=== PATIENT | female | born 1980 | race Caucasian/White ===

== ENCOUNTER 2017-08-24 14:39 | Emergency (ER) | payer MEDICAID ==
[~2017-08-24] VITALS: Ht 154.9 cm; Wt 71.7 kg
[2017-08-24 14:53] VITALS: BP 100/65
--- NOTE | 2017-08-24 15:31 | Emergency Room Report ---
History of Present Illness General Chief Complaint: Skin Rash/Abscess Source: Patient Present Illness HPI 37-year-old female presents to the emergency department complaining of erythema , 5/10 in severity tenderness, itching of the left forearm and an area of the left shoulder x2 days. Patient reports she had small insect bites initially however on the left forearm moderate swelling has progressed in addition to increased temperature palpation, erythema and tenderness.Denies lesions/rashes elsewhere on the body. Denies new medications or body washes or creams. Denies swelling of the lips, tongue , throat or airway. Denies wheezing, or shortness of breath. Denies recent travel, recent illness or ill contacts. denies blisters, oral lesions, or sloughing of the skin. Denies CP, Palpitations, LOC , AMS, dizziness, Changes in Vision, Sensation, paresthesias, or a sudden severe headache. Allergies: Coded Allergies: PENICILLINS (Verified Allergy, Unknown, 08/24/17) Patient History Past Medical History: see triage record Past Surgical History: none Pertinent Family History: none Last Menstrual Period: 08/22/17 Now: No Immunizations: UTD Reviewed Nursing Documentation: PMH: Agreed, PSxH: Agreed Nursing Documentation-PMH Past Medical History: No Stated History Review of Systems All Other Systems: negative except mentioned in HPI Physical Exam Vital Signs Date Time Temp Pulse Resp B/P (MAP) Pulse Ox O2 Delivery O2 Flow Rate FiO2 08/24/17 14:45 98.2 89 14 100/65 96 Room Air Sp02 EP Interpretation: reviewed, normal General Appearance: no apparent distress, alert, GCS 15, non-toxic Head: normocephalic, atraumatic Eyes: bilateral eye normal inspection, bilateral eye PERRL ENT: hearing grossly normal, normal pharynx, no angioedema, normal voice, other - no swelling of the lips or tongue, no oral lesions Neck: full range of motion Respiratory: chest non-tender, lungs clear, normal breath sounds, no wheezing, speaking full sentences Cardiovascular #1: regular rate, rhythm, normal capillary refill Cardiovascular #2: 2+ radial (R), 2+ radial (L) Rectal: deferred Musculoskeletal: back normal, gait/station normal, normal range of motion, non- tender Neurologic: alert, oriented x3, responsive, motor strength/tone normal, sensory intact, speech normal Psychiatric: judgement/insight normal, memory normal, mood/affect normal Skin: normal color, warm/dry, well hydrated, rash - swelling erythema, increased temperature to palpation to the left fore arm approximately 5 inches in diameter, there is mild swelling induration and blanching erythema to a discrete lesion on the left shoulder as well. Medical Decision Making PA Attestation Dr. Rosenberg is my supervising Physician whom patient management has been discussed with. Diagnostic Impression: Primary Impression: Insect bite Qualified Codes: W57.XXXA - Bitten or stung by nonvenomous insect and other nonvenomous arthropods, initial encounter Additional Impression: Cellulitis Qualified Codes: L03.114 - Cellulitis of left upper limb ER Course 37-year-old female presents to the emergency department complaining of erythema , 5/10 in severity tenderness, itching of the left forearm and an area of the left shoulder x2 days. Patient reports she had small insect bites initially however on the left forearm moderate swelling has progressed in addition to increased temperature palpation, erythema and tenderness.Denies lesions/rashes elsewhere on the body. Denies new medications or body washes or creams. Denies swelling of the lips, tongue , throat or airway. Denies wheezing, or shortness of breath. Denies recent travel, recent illness or ill contacts. denies blisters, oral lesions, or sloughing of the skin. Denies CP, Palpitations, LOC , AMS, dizziness, Changes in Vision, Sensation, paresthesias, or a sudden severe headache. Ddx considered but are not limited to cellulitis, scabies, shingles, varicella, dermatitis, urticaria, eczema, tinea, viral exanthem, SJS Vital signs: are WNL, pt. is afebrile H&PE are most consistent with Insect bites with secondary cellulitis ORDERS: none required at this time, the diagnosis is clinical ED INTERVENTIONS: -Ice Pack -Tylenol -Benadryl DISCHARGE: At this time pt. is stable for d/c to home. Will provide printed patient care instructions, and any necessary prescriptions. Care plan and follow up instructions have been discussed with the patient prior to discharge. Last Vital Signs Date Time Temp Pulse Resp B/P (MAP) Pulse Ox O2 Delivery O2 Flow Rate FiO2 08/24/17 14:53 14 100/65 96 Room Air 08/24/17 14:45 98.2 89 Disposition: HOME, SELF-CARE Condition: Stable Patient Instructions: Cellulitis, [id number], Insect Bite, Xrmd-[id number] Additional Instructions: Take medications as directed. Follow up with a Primary Care Provider in 3-5 days, even if your symptoms have resolved. --Please review list of primary care clinics, if you do not already have a primary care provider Return sooner to ED if new symptoms occur, or current symptoms become worse. - Please note that this Emergency Department Report was dictated using [employer] global intelligence technology software, occasionally this can lead to erroneous entry secondary to interpretation by the dictation equipment. Ester Zafar Aug 24, 2017 15:31
[2017-08-24] MEDS ORDERED: CEPHALEXIN500 MG ORAL (15:32)
[2017-08-24] MEDS ORDERED: BENADRYL ALLERG25 M1 PO (15:32)
[2017-08-24] MEDS ORDERED: TYLENOL EXTRA500 MG ORAL (15:32)
[2017-08-24] MEDS ORDERED: HYDROCORTISONE30 G2 TP (15:32)
== END 2017-08-24 15:34 | disposition home or self-care (01) ==
LOC: EMR 15:25
DX: L03.114 Cellulitis of left upper limb (principal); Z88.0 Allergy status to penicillin
CPT/HCPCS: 99283

== ENCOUNTER 2018-08-18 15:35 | Emergency (ER) | payer MEDICAID ==
[~2018-08-18] VITALS: Ht 165.1 cm; Wt 61.2 kg
[~2018-08-18 15:35] MED LIST: BENADRYL ALLERG25 M1 PO; CEPHALEXIN500 MG ORAL; HYDROCORTISONE30 G2 TP; TYLENOL EXTRA500 MG ORAL
[2018-08-18 16:00] VITALS: BP 125/81
[2018-08-18] MEDS ORDERED: Tylenol #3 tab (300mg/30mg) ORAL ONE (16:00)
[2018-08-18] MEDS ORDERED: Tetanus/Diptheria/Pertussis Vaccine 0.5ml Syr IM ONE (16:00)
[2018-08-18] MEDS ORDERED: ACETAMINOPHEN-1 EAC1 ORAL (16:01)
[2018-08-18] MEDS ORDERED: SILVADENE20 GM TP (16:01)
[2018-08-18 16:14] VITALS: BP 125/81
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
== END 2018-08-18 16:15 | disposition home or self-care (01) ==
LOC: EMR 16:07
DX: T22.212A Burn of second degree of left forearm, initial encounter (principal); X10.1XXA Contact with hot food, initial encounter; Y92.9 Unspecified place or not applicable; Z23 Encounter for immunization; Z88.0 Allergy status to penicillin
CPT/HCPCS: 16020; 90471; 90715; 99283; Z7502

== ENCOUNTER 2018-10-11 19:25 | Emergency (ER) | payer MEDICAID ==
[~2018-10-11] VITALS: Ht 154.9 cm; Wt 63.5 kg
[~2018-10-11 19:25] MED LIST changes: +ACETAMINOPHEN-1 EAC1 ORAL; +SILVADENE20 GM TP
[2018-10-11] MEDS ORDERED: NKM (19:39)
[2018-10-11] MEDS ORDERED: ZITHROMAX250 MG ORAL (19:41)
[2018-10-11 19:48] VITALS: BP 113/79
--- NOTE | 2018-10-11 19:51 | Emergency Room Report ---
History of Present Illness General Chief Complaint: Upper Respiratory Illness Source: Patient Present Illness HPI Patient presents emergency department today complaint cough congestion that's going on for 10 days. She complains of sinus pain is well. She denies any fever denies any nausea vomiting diarrhea chills. Symptoms noted to be severe. Patient of note is allergic to penicillin. Patient states that she is coughing all day and night seems to be worsened night but it improves with NyQuil. She complains of a fevers and chills as well. No other complaints are noted. She does have frontal headache as well. Symptoms noted to be severe.No other modifying factors. No other associated signs and symptoms. No other complaints were noted. Allergies: Coded Allergies: PENICILLINS (Verified Allergy, Unknown, 08/18/18) Patient History Past Medical History: none Past Surgical History: none Pertinent Family History: none Social History: Denies: smoking, alcohol use, drug use Last Menstrual Period: last week Now: No Reviewed Nursing Documentation: PMH: Agreed; PSxH: Agreed Nursing Documentation-PMH Past Medical History: No Stated History Review of Systems All Other Systems: negative except mentioned in HPI Physical Exam Vital Signs Date Time Temp Pulse Resp B/P (MAP) Pulse Ox O2 Delivery O2 Flow Rate FiO2 10/11/18 19:29 98.6 87 18 113/79 100 Room Air Sp02 EP Interpretation: reviewed, normal General Appearance: normal inspection, well appearing, no apparent distress, alert Head: normocephalic, atraumatic Eyes: bilateral eye normal inspection ENT: hearing grossly normal, normal voice, nasal congestion, other - Facial tenderness Neck: normal inspection, full range of motion, supple, no bony tend Respiratory: normal inspection, lungs clear, normal breath sounds, no respiratory distress, no retraction, no wheezing Cardiovascular #1: regular rate, rhythm, no edema Gastrointestinal: normal inspection, normal bowel sounds, non tender, soft, no guarding, no hernia Genitourinary: no CVA tenderness Musculoskeletal: normal inspection, back normal, normal range of motion Neurologic: normal inspection, alert, responsive, speech normal Psychiatric: normal inspection, judgement/insight normal, mood/affect normal Skin: normal inspection, normal color, no rash Medical Decision Making Diagnostic Impression: Primary Impression: Cough Additional Impression: Acute sinusitis ER Course Patient presents emergency department today complaining of sinus pain cough congestion subjective fevers and chills. Differential considerations include pneumonia, bronchitis, asthma, sinusitis, viral syndrome just name a few. Patient's exam and symptoms are consistent with sinusitis. Patient has had symptoms for greater than 10 days. Therefore this is unlikely to be a viral symptom. I felt that this is likely bacterial sinusitis. Patient will require antibiotics. Patient was started on Z-Dmitriy. Z-Dmitriy was unit because patient is allergic to penicillin.Patient is advised to follow up with primary doctor in 2- 3 days and return the emergency room for any worsening symptoms and as needed. MIPS: Patient was started on antibiotics because patient has symptoms of sinusitis or greater than 10 days. This is unlikely to be viral and is likely to be bacterial. Of note patient is allergic to penicillin therefore Z-Dmitriy was elected on amoxicillin was contraindicated in this patient. Last Vital Signs Date Time Temp Pulse Resp B/P (MAP) Pulse Ox O2 Delivery O2 Flow Rate FiO2 10/11/18 19:29 98.6 87 18 113/79 100 Room Air Status: improved Disposition: HOME, SELF-CARE Condition: Stable Scripts Azithromycin* (ZITHROMAX*) 250 Mg Tablet 250 MG ORAL DAILY, #6 TAB 0 Refills Take two tables once daily for 1 day, then one tablet once daily for 4 days. Prov: Baljinder Millan MD 10/11/18 Patient Instructions: Acute Bronchitis, [id number] Baljinder Millan MD Oct 11, 2018 19:51
[2018-10-11 19:57] VITALS: BP 111/80
== END 2018-10-11 20:00 | disposition home or self-care (01) ==
LOC: EMR 19:40
DX: J01.90 Acute sinusitis, unspecified (principal); Z88.0 Allergy status to penicillin
CPT/HCPCS: 99282

== ENCOUNTER 2018-12-25 18:51 | Emergency (ER) | payer MEDICAID ==
[~2018-12-25] VITALS: Ht 157.5 cm; Wt 65.8 kg
[~2018-12-25 18:51] MED LIST changes: +NKM; +ZITHROMAX250 MG ORAL
--- NOTE | 2018-12-25 19:17 | NUR ---
ED Nurse Note: Pt arrived ED from home. C/o Flu like symptoms for 2 days. Pt is A/O x4. Vital signs stable at this time, waiting for orders.
--- NOTE | 2018-12-25 19:53 | Emergency Room Report ---
History of Present Illness General Chief Complaint: Flu Like Symptoms Source: Patient Present Illness HPI 38-year-old female patient presents the ER with multiple complaints x1 day. Reports subjective fever and chills at home, afebrile currently in the ER. Reports take Tylenol for relief of symptoms. Reports sinus pressure and congestion during this time. Reports rhinorrhea. Denies chest pain, shortness of breath, abdominal pain, vomiting, diarrhea. Reports chills at home's. Denies history of asthma or heart disease. Denies recent travel. Reports sick contacts at home. Denies cough. Denies syncope. Allergies: Coded Allergies: PENICILLINS (Verified Allergy, Unknown, 08/18/18) Patient History Past Medical History: see triage record Last Menstrual Period: 2 weeks ago Reviewed Nursing Documentation: PMH: Agreed; PSxH: Agreed Nursing Documentation-PMH Past Medical History: No Stated History Review of Systems All Other Systems: negative except mentioned in HPI Physical Exam Vital Signs Date Time Temp Pulse Resp B/P (MAP) Pulse Ox O2 Delivery O2 Flow Rate FiO2 12/25/18 18:54 99.1 106 20 94/58 98 Room Air Sp02 EP Interpretation: reviewed, normal General Appearance: well appearing, no apparent distress, alert, GCS 15, non- toxic Head: normocephalic, atraumatic, other - No maxillary or frontal sinus tender to palpation bilaterally Eyes: bilateral eye normal inspection, bilateral eye PERRL ENT: hearing grossly normal, normal pharynx, no angioedema, normal voice, TMs + canals normal, uvula midline, moist mucus membranes, nasal congestion, other - uvula midline Neck: full range of motion, no meningismus, no bony tend Respiratory: lungs clear, normal breath sounds, no rhonchi, no respiratory distress, no accessory muscle use, no wheezing, speaking full sentences Cardiovascular #1: regular rate, rhythm, no edema, normal capillary refill Gastrointestinal: non tender, soft, no mass, non-distended, no guarding, no rebound Genitourinary: no CVA tenderness Musculoskeletal: back normal, digits/nails normal, gait/station normal, normal range of motion, non-tender Neurologic: alert, oriented x3, responsive, motor strength/tone normal, sensory intact Psychiatric: mood/affect normal Skin: no rash, normal turgor Lymphatic: no adenopathy Medical Decision Making PA Attestation Dr. Avina is my supervising Physician whom patient management has been discussed with. Diagnostic Impression: Primary Impression: Influenza-like symptoms Additional Impressions: Sinus headache Hypotension ER Course Pt presents to ED c/o flu-like symptoms. DDX considered but are not limited to influenza, viral URI, pneumonia, strep throat, rhinitis, sinusitis, otitis media, otitis externa, UTI. Negative Kernig, negative Brudzinski, patient afebrile, low suspicion for meningitis. No focal neuro deficits, cranial nerves intact as tested, does not require CT head at this time. Low suspicion for PE per the well's criteria. VITAL SIGNS are WNL, patient is afebrile. Hypotensive, will provide with IV fluids. Mild tachycardia noted, will continue to monitor. ER COURSE: CXR negative for acute disease. Lungs clear to auscultation, no wheezes, rhonci or rales. patient afebrile. Low suspicion for pneumonia. no tonsillar exudates, no pharyngeal erythema, history of cough, no fever, no stridor, uvula midline, low suspicion for peritonsillar abscess. Likely viral etiology of symptoms. Symptomatic treatment. drink plenty of fluids. Salt water gargles for sore throat. Followup with PCP for further treatment and/or referral as needed. Chest x-ray negative for acute disease, low suspicion for pneumonia, lungs clear to auscultation, does not require breathing treatment at this time, does not require antibiotics. UA unremarkable, no signs of infection, urine negative. Does not require antibiotic for UTI at this time. Influenza swab negative. Heart rate improved, still noted hypertension, advised patient follow-up with virtualization engineer to discuss further treatment referral. Likely low volume of fluid , advised to drink plenty of fluids at home and take Tylenol for pain symptoms. ER precautions given. DISCHARGE: At this time pt is stable for d/c to home. Patient is resting comfortably, in no acute distress, nontoxic appearing. Patient to take medications as instructed Will provide with patient care instructions and any necessary prescriptions. Care plan and follow-up instructions provided. Patient instructed to follow-up with primary care provider in 3 - 5 days. Patient questions asked and answered. Patient reports understanding and agreement to treatment plan. ER precautions given. Patient instructed to return to ER immediately for any new or worsening of symptoms including but not limited to increasing SOB, persistent fever, intractable vomiting. - Please note that this Emergency Department Report was dictated using [employer] rig[employer] technology software, occasionally this can lead to erroneous entry secondary to interpretation by the dictation equipment. Labs Test 12/25/18 19:00 Urine Color Pale yellow Urine Appearance Clear Urine pH 8 (4.5-8.0) Urine Specific [place] 1.010 (1.005-1.035) Urine Protein Negative (NEGATIVE) Urine Glucose (UA) Negative (NEGATIVE) Urine Ketones Negative (NEGATIVE) Urine Blood 2+ (NEGATIVE) Urine Nitrite Negative (NEGATIVE) Urine Bilirubin Negative (NEGATIVE) Urine Urobilinogen Normal MG/DL (0.0-1.0) Urine Leukocyte Esterase Negative (NEGATIVE) Urine RBC 2-4 /HPF (0 - 2) Urine WBC 0-2 /HPF (0 - 2) Urine Squamous Epithelial Cells Few /LPF (NONE/OCC) Urine Bacteria Few /HPF (NONE) Urine HCG, Qualitative Negative (NEGATIVE) Chest X-Ray Diagnostic Results Chest X-Ray Diagnostic Results : Chest X-Ray Ordered: Yes # of Views/Limited/Complete: 1 View Indication: Chest Pain EP Interpretation: Yes PA Xray: Interpretation reviewed, by supervising MD, and agrees with findings. Interpretation: no consolidation, no effusion, no pneumothorax, no acute cardiopulmonary disease Impression: No acute disease ASHER Scribe Text Andrés Stone PA-C Last Vital Signs Date Time Temp Pulse Resp B/P (MAP) Pulse Ox O2 Delivery O2 Flow Rate FiO2 12/25/18 18:54 99.1 106 20 94/58 98 Room Air Status: improved Disposition: HOME, SELF-CARE Condition: Stable Scripts Guaifen/Phenyleph/Acetaminophn (Sudafed PE Pressure+Pain+Mucus) 1 Each Tablet 1 EACH PO DAILY, #24 TAB Prov: Tyler Stone 12/25/18 Oseltamivir Phosphate (Tamiflu) 75 Mg Capsule 75 MG ORAL TWICE A DAY for 5 Days, #10 CAP Prov: Tyler Stone 12/25/18 Patient Instructions: Hypotension, Kfnz-[id number], Influenza, Adult, Musc-eq-Rjrl , Sinus Headache, Ygfq-mi-Hlxe, Sinusitis, Adult, Mpus-fz-Nbdu Additional Instructions: Followup with primary care provider in 3 -5 days. Take medications as directed. Patient questions asked and answered. ER precautions given, patient instructed to return to ER immediately for any new or worsening of symptoms. Tyler Stone Dec 25, 2018 19:53
[2018-12-25 20:23] LABS: APPEARANCE,URINE CLEAR; BILIRUBIN, URINE NEGATIVE (NEGATIVE); COLOR,URINE PALE YELLOW; GLUCOSE, URINE (UA) NEGATIVE (NEGATIVE); KETONES,URINE NEGATIVE (NEGATIVE); LEUKOCYTE ESTERASE ,URINE NEGATIVE (NEGATIVE); NITRITE,URINE NEGATIVE (NEGATIVE); PH,URINE 8 (4.5-8.0); PROTEIN,URINE NEGATIVE (NEGATIVE); UROBILINOGEN,URINE NORMAL MG/DL (0.0-1.0)
[2018-12-25] MEDS ORDERED: TAMIFLU75 MG ORAL (21:03)
[2018-12-25] MEDS ORDERED: SUDAFED PE PRE1 EAC3 PO (21:03)
[2018-12-25 21:06] VITALS: BP 98/57
[2018-12-25 21:18] VITALS: BP 100/61
--- NOTE | 2018-12-25 21:18 | NUR ---
ED Nurse Note: Pt has seen by Mian/ ASHER, all orders carried out. Pt is ready for Discharge. D/C instruction and Prescription given to Pt and verbalized understanding. IV/ ID band removed. Pt d/c from ED with steady gait. Accompanied by her Family.
--- NOTE | 2018-12-26 09:10 | Diagnostic Imaging Report ---
Indication: Chest pain Technique: One view of the chest Comparison: none Findings: Lungs and pleural spaces are clear. Heart size is normal Impression: No acute process
== END 2018-12-25 21:25 | disposition home or self-care (01) ==
LOC: EMR 21:25
DX: J11.1 Influenza due to unidentified influenza virus with other respiratory manifestations (principal); R51 Headache; I95.9 Hypotension, unspecified; Z88.0 Allergy status to penicillin
CPT/HCPCS: 71045; 81003; 81025; 86710; 96360; 99284